=== PATIENT | female | born 1975 | race Caucasian/White ===

== ENCOUNTER 2019-08-14 13:12 | Emergency (ER) | payer SELFPAY ==
[~2019-08-14] VITALS: Ht 160 cm; Wt 49.7 kg
--- NOTE | 2019-08-14 14:02 | NUR ---
PT UPRIGHT ON PELVIC GURNEY AWAKE & COMFORTABLE, RESPONDS APPROP TO STAFF, NAD, COMFORT MEASURES PROVIDED, CALL LIGHT WITHIN REACH.
[2019-08-14 14:22] LABS: HCG UR SG 1.028 (1.003-1.030)
[2019-08-14 14:24] LABS: CULTURE INDICATED? YES; MICROSCOPIC INDICATED
[2019-08-14 14:40] LABS: CLUE CELLS NONE SEEN (NONE SEEN); WET PREP WBCS MANY (FEW)
[2019-08-14] MEDS ORDERED: CEFTRIAXONE 1,000 MG IM ONE (15:00)
[2019-08-14] MEDS ORDERED: metroNIDAZOLE 500 MG TABLET PO ONE (15:00)
[2019-08-14] MEDS ORDERED: AZITHROMYCIN 500 MG TABLET PO ONE (15:00)
[2019-08-14 15:01] VITALS: BP 123/73
--- NOTE | 2019-08-14 15:01 | NUR ---
PT REMAINS UPRIGHT ON GURNEY AWAKE & COMFORTABLE, RESPONDS APPROP TO STAFF, NAD, COMFORT MEASURES PROVIDED, CALL LIGHT WITHIN REACH.
[2019-08-14] MEDS ORDERED: CEFTRIAXONE 250 MG ONE (15:12)
[2019-08-14] MEDS ORDERED: metroNIDAZOLE 500 MG TABLET ONE (15:12)
[2019-08-14] MEDS ORDERED: AZITHROMYCIN 500 MG TABLET ONE (15:12)
== END 2019-08-14 16:51 ==
LOC: ED 15:55
DX: A64 Unspecified sexually transmitted disease (principal); A59.01 Trichomonal vulvovaginitis; J45.909 Unspecified asthma, uncomplicated; F17.210 Nicotine dependence, cigarettes, uncomplicated; Z90.89 Acquired absence of other organs; Z90.710 Acquired absence of both cervix and uterus
CPT/HCPCS: 81001; 81025; 87086; 87210; 87491; 87591; 87808; 96372; 99283; 99406; J0696

== ENCOUNTER 2020-02-05 23:35 | Emergency (ER) | payer OTHER ==
[~2020-02-05] VITALS: Ht 160 cm; Wt 51.9 kg
[2020-02-06] MEDS ORDERED: MORPHINE SULFATE 4 MG/ML, 1ML IVPush PRN
[2020-02-06] MEDS ORDERED: SODIUM CHLORIDE 0.9% 1,000ML IVBOLUS ONE
[2020-02-06] MEDS ORDERED: SODIUM CHLORIDE FLUSH 10ML SYR IVF ONE
[2020-02-06] MEDS ORDERED: PROMETHAZINE 25 MG/ML, 1ML IM ONE
[2020-02-06] MEDS ORDERED: ONDANSETRON 2MG/ML, 2ML IVPush ONE
[2020-02-06] MEDS ORDERED: MORPHINE SULFATE 4 MG/ML, 1ML ONE (00:11)
[2020-02-06] MEDS ORDERED: ONDANSETRON 2MG/ML, 2ML ONE (00:11)
[2020-02-06] MEDS ORDERED: PROMETHAZINE 25 MG/ML, 1ML ONE (00:11)
[2020-02-06 00:22] LABS: BASOPHILS # (AUTO) 0.05 x10^3/uL (0-0.1); BASOPHILS % (AUTO) 0 % (0-1); EOSINOPHILS # (AUTO) 0.04 x10^3/uL (0-0.4); EOSINOPHILS % (AUTO) 0 % (1-7); LYMPHOCYTES # (AUTO) 1.58 x10^3/uL (1-3.4); LYMPHOCYTES % (AUTO) 11 % (22-44); MD NO; MEAN CORPUSCULAR HEMOGLOBIN 29.8 pg (27.0-34.8); MEAN CORPUSCULAR HGB CONC 33.4 g/dL (32.4-35.8); MEAN CORPUSCULAR VOLUME 89.3 fL (80-100); MEAN PLATELET VOLUME 7.4 fL (7.4-10.4); MONOCYTES % (AUTO) 3 % (2-9); NEUTROPHILS # (AUTO) 11.87 x10^3/uL (1.8-6.8); NEUTROPHILS % (AUTO) 85 % (42-75); PLATELET COUNT 288 x10^3/uL (130-400); RED BLOOD COUNT 5.23 x10^6/uL (3.82-5.3); RED CELL DISTRIBUTION WIDTH 12.7 % (9.6-15.2)
--- NOTE | 2020-02-06 00:35 | NUR ---
REPORT RECEIVED FROM LEONARD Dixon RN
[2020-02-06 00:36] LABS: ALANINE AMINOTRANSFERASE 31 U/L (12-78); ALBUMIN 3.9 g/dL (3.4-5.0); ANION GAP 9 mmol/L (5-15); CALCIUM 9.1 mg/dL (8.5-10.1); CHLORIDE 109 mmol/L (98-107); CREATININE 0.91 mg/dL (0.55-1.02)
[2020-02-06 00:41] LABS: ALKALINE PHOSPHATASE 49 U/L (45-117); BILIRUBIN,TOTAL 0.4 mg/dL (0.2-1.0)
[2020-02-06 00:58] VITALS: BP 127/63
== END 2020-02-06 01:01 | disposition home or self-care (01) ==
LOC: ED 02-06 00:45
DX: K52.29 Other allergic and dietetic gastroenteritis and colitis (principal); R10.13 Epigastric pain; R11.2 Nausea with vomiting, unspecified; R19.7 Diarrhea, unspecified; I49.1 Atrial premature depolarization; J45.909 Unspecified asthma, uncomplicated; F17.210 Nicotine dependence, cigarettes, uncomplicated; Z90.89 Acquired absence of other organs; Z90.710 Acquired absence of both cervix and uterus
CPT/HCPCS: 36415; 80053; 83690; 84703; 85025; 93005; 96361; 96372; 96374; 96375; 99284; 99406; J2270; J2405; J2550; J7030

== ENCOUNTER 2020-05-02 12:57 | Emergency (ER) | payer OTHER ==
[~2020-05-02] VITALS: Ht 160 cm; Wt 54.7 kg
--- NOTE | 2020-05-02 13:01 | NUR ---
no answer from triage
[2020-05-02 16:02] VITALS: BP 127/100
[2020-05-02] MEDS ORDERED: KETOROLAC 30 MG/1 ML IM ONE (16:30)
[2020-05-02] MEDS ORDERED: DIAZEPAM 5 MG TABLET PO ONE (16:30)
[2020-05-02] MEDS ORDERED: LIDODERM 5% PATCH TD ONE ×2 (16:30→16:39)
[2020-05-02] MEDS ORDERED: DIAZEPAM 5 MG TABLET ONE (16:38)
[2020-05-02] MEDS ORDERED: KETOROLAC 30 MG/1 ML ONE (16:39)
[2020-05-02] MEDS ORDERED: HYDROcodone/APAP 5/325 TABLET PO ONE (17:30)
[2020-05-02] MEDS ORDERED: HYDROcodone/APAP 5/325 TABLET ONE (17:38)
== END 2020-05-02 18:13 | disposition home or self-care (01) ==
LOC: ED 16:30
DX: M54.41 Lumbago with sciatica, right side (principal); J45.909 Unspecified asthma, uncomplicated; Z90.89 Acquired absence of other organs; Z90.710 Acquired absence of both cervix and uterus
CPT/HCPCS: 96372; 99284; J1885; 99283

== ENCOUNTER 2020-06-09 10:44 | Emergency (ER) | payer OTHER ==
[~2020-06-09] VITALS: Ht 160 cm; Wt 52.0 kg
--- NOTE | 2020-06-09 11:45 | NUR ---
CXR at bedside
--- NOTE | 2020-06-09 12:11 | NUR ---
isadora orosco for MD gaffney, report to [facility] VALDEZ for lunch
[2020-06-09 12:23] VITALS: BP 126/84
== END 2020-06-09 12:37 | disposition home or self-care (01) ==
LOC: ED 11:03
DX: B34.9 Viral infection, unspecified (principal); R00.0 Tachycardia, unspecified; Z20.822 Contact with and (suspected) exposure to COVID-19; R09.81 Nasal congestion; R53.83 Other fatigue; J45.909 Unspecified asthma, uncomplicated
CPT/HCPCS: 71045; 87635; 93005; 99285

== ENCOUNTER 2021-01-10 07:26 | Emergency (ER) | payer OTHER ==
[~2021-01-10] VITALS: Ht 160 cm; Wt 53.6 kg
[2021-01-10 07:29] VITALS: BP 127/86
--- NOTE | 2021-01-10 07:45 | NUR ---
PT AMBULATORY TO ROOM FROM TRIAGE, PT C/O COUGH FOR 3 DAYS, FEVER AND BODY ACHES. PT CHANGED INTO GOWN. CALL LIGHT WITHIN REACH
--- NOTE | 2021-01-10 07:47 | NUR ---
PA AT BS FOR EVAL
[2021-01-10] MEDS ORDERED: BENZONATATE 100 MG CAPSULE ONE (07:54)
--- NOTE | 2021-01-10 07:59 | NUR ---
PT MEDICATED PER KAYLEIGH RUVALCABAN. CALL LIGHT WITHIN REACH
[2021-01-10] MEDS ORDERED: BENZONATATE 100 MG CAPSULE PO ONE (08:00)
--- NOTE | 2021-01-10 08:04 | NUR ---
XRAY AT BS
--- NOTE | 2021-01-10 08:33 | NUR ---
Patient given discharge instructions and rx, they have confirmed that they understand the instructions. Patient ambulatory with steady gait.
== END 2021-01-10 08:34 | disposition home or self-care (01) ==
LOC: ED 08:28
DX: B34.9 Viral infection, unspecified (principal); Z20.822 Contact with and (suspected) exposure to COVID-19
CPT/HCPCS: 71045; 99284; U0003; U0005

== ENCOUNTER 2021-01-19 04:57 | Emergency (ER) | payer SELFPAY ==
[~2021-01-19] VITALS: Ht 160 cm; Wt 52.9 kg
[2021-01-19 04:58] VITALS: BP 152/113
--- NOTE | 2021-01-19 05:50 | NUR ---
indoor landscape architect: patient to room from lobby.
[2021-01-19] MEDS ORDERED: DIPH,PERTUSS(ACELL),TET VAC/PF 0.5 ML IM-VACC ONE ×2 (06:27→06:30)
[2021-01-19] MEDS ORDERED: IBUPROFEN 600 MG TABLET ONE (06:49)
--- NOTE | 2021-01-19 06:56 | NUR ---
Report given to COURTNEY Enciso no further questions at this time.
[2021-01-19] MEDS ORDERED: IBUPROFEN 200 MG TABLET PO ONE (07:00)
--- NOTE | 2021-01-19 07:09 | NUR ---
ASSUMING CARE AFTER BEDSIDE REPORT. PT RESTING IN BED. NADN. VSS. EMT AT BEDSIDE TO DRESS LAC.
--- NOTE | 2021-01-19 08:28 | NUR ---
Patient/Caregiver given discharge instructions and they have confirmed that they understand the instructions. Patient ambulatory with steady gait. NAD, all questions answered appropriately, denies additional needs at this time. No personal belongings left in room after discharge.
== END 2021-01-19 08:29 | disposition home or self-care (01) ==
LOC: ED 06:09
DX: S61.012A Laceration without foreign body of left thumb without damage to nail, initial encounter (principal); J45.909 Unspecified asthma, uncomplicated; Z90.710 Acquired absence of both cervix and uterus; Z90.89 Acquired absence of other organs; F17.200 Nicotine dependence, unspecified, uncomplicated; W25.XXXA Contact with sharp glass, initial encounter; Y93.89 Activity, other specified; Y92.009 Unspecified place in unspecified non-institutional (private) residence as the place of occurrence of the external cause; Y99.8 Other external cause status
CPT/HCPCS: 90471; 90715; 99283

== ENCOUNTER 2021-02-24 06:18 | Emergency (ER) | payer BC, OTHER ==
[~2021-02-24] VITALS: Ht 160 cm; Wt 56.2 kg
[2021-02-24 06:20] VITALS: BP 120/74
--- NOTE | 2021-02-24 06:26 | NUR ---
PT PRESENTS TO ER FOR BILATERAL EAR PAIN AND FOR THROAT PAIN, PT STATES THIS HAS BEEN GOING ON SINCE YESTERDAY, PT STATES SHE IS HAVING A NON PRODUCTIVE COUGH,
--- NOTE | 2021-02-24 06:33 | NUR ---
ER MD AT BEDSIDE TO DISCUSS POC
== END 2021-02-24 06:44 ==
LOC: ED 06:41
DX: H60.313 Diffuse otitis externa, bilateral (principal); J02.9 Acute pharyngitis, unspecified
CPT/HCPCS: 99283